=== PATIENT | male | born 1960 | race Caucasian/White ===

== ENCOUNTER 2018-07-21 07:55 | Day surgery (SDC) | payer OTHER ==
[~2018-07-21] VITALS: Ht 182.9 cm; Wt 98.0 kg
[~2018-07-21 07:55] MED LIST: ALLERCLEAR10 MG PO; FISH OIL 1,0001 EAC6 PO; ONCE DAILY1 EACH PO; PANTOPRAZOLE SO40 MG PO
--- NOTE | 2018-07-21 11:32 | NUR ---
07/21/18 1132 Stacey Yi 1124- PT ARRIVES TO PACU. EASILY AROUSABLE TO VOICE. REPORTS NO NAUSEA PAIN, OR DIZZINESS. CMS INTACT. 1131- OXYGEN TURNED OFF. OXYGEN SAT HIGH 90'S TO 100% ON RA.
--- NOTE | 2018-07-21 12:08 | NUR ---
PATIENT BACK IN DAY SURGERY ROOM FROM PACU. STATES LEFT KNEE IS "SORE". DENIES NEED FOR PAIN MEDICATION AT THIS TIME. LEFT KNEE DRESSING CDI. CMS TO LEFT TOES WNL. ICE PACK TO LEFT KNEE. LEFT LEG ELEVATED ON PILLOW. SCDs ON. TOLERATING ICE WATER. DENIES NAUSEA. LUNCH ORDERED FOR PATIENT. AT BEDSIDE. CALL LIGHT WITHIN REACH.
[2018-07-21] MEDS ORDERED: ULTRAM50 MG PO (12:16)
--- NOTE | 2018-07-21 13:35 | NUR ---
1300: PATIENT TOLERATED LUNCH. MEDICATED FOR PAIN. ASSISTED PATIENT OOB AND TO BATHROOM. GAIT STEADY TO BATHROOM. VOID WITHOUT DIFFICULTY. GAIT STEADY BACK TO ROOM. PATIENT GETTING DRESSED. 1315: DISCHARGE INSTRUCTIONS GIVEN TO PATIENT AND . IV DC'D WNL. TIP INTACT. DRESSING APPLIED. 1325: PATIENT DISCHARGED TO HOME WITH VIA WHEELCHAIR.
--- NOTE | 2018-07-26 07:13 | OR ---
[facility] [address] [place], [place] [address] Signed DATE OF OPERATION: SURGEON: Ar Huang MD PREOPERATIVE DIAGNOSIS: Ganglion cyst in the notch of the left knee. POSTOPERATIVE DIAGNOSIS: Ganglion cyst in the notch of the left knee. PROCEDURE PERFORMED: Removal of ganglion cyst in the notch of left knee with debridement of partial thickness ACL tear. ANESTHESIA: General. SPECIMENS: There were no specimens. COMPLICATIONS: None. TOURNIQUET TIME: About 27 minutes. WHAT WAS DONE: The patient was taken to the operating room. After anesthesia was induced and the airway secured, the patient was positioned, prepped and draped in a routine sterile fashion. The leg was exsanguinated with an Esmarch bandage. Pneumatic tourniquet was inflated to 300 mmHg pressure. An outflow portal was created superolaterally and an anterolateral arthroscopic portal was created. The arthroscope was introduced and the knee was filled with saline. The suprapatellar pouch was unremarkable. There were minimal grade 1 changes over the patellofemoral joint. The medial recess was unremarkable. The medial compartment showed some areas of grade 2 chondral filter changer the weightbearing portion of the medial femoral condyle, particularly on the lateral half of the medial femoral condyle, but the menisci seemed intact. There was moderate fraying of the ACL and the intercondylar notch. An anterolateral portal was created using transillumination and localization with a spinal needle. We then introduced the motorized shaver and debrided the loose ACL shards. There was still adequate ACL remaining and he had a negative Ivana's performed with the scope looking right at the Electronically Signed By: AR HUANG MD 07/26/18 0713 PATIENT NAME: PORTILLO NICHOLSON OPERATIVE REPORT DATE OF : 58 REPORT #: [id number] PHYSICIAN: AR HUANG MD PCP: PETRONA ZABALA REPORT IS CONFIDENTIAL AND NOT TO BE RELEASED WITHOUT AUTHORIZATION [facility] [address] [place], [place] [address] Signed ACL. The lateral compartment and lateral recess were unremarkable. We then created an auxiliary anterolateral portal and through it, we introduced the VAPR device. We used the VAPR to gently remove the soft tissue over the apex of the notch moving posteriorly until we encountered the ganglion cyst. We passed the nerve hook and we were able to rupture the ganglion cyst over the outpouring of significant amount of classic ganglionic fluid. We then used the VAPR device to remove the ganglion cyst remnants. The knee was copiously irrigated and drained, the portals were closed, and a sterile dressing applied. The patient was awakened, taken to the recovery room, where he arrived in stable condition. Counts were correct and antibiotic protocols were followed. MD SHAWNA Kamara/ANGELIKAL /[id number] Copies: ~ Electronically Signed By: AR HUANG MD 07/26/18 0713 PATIENT NAME: PORTILLO NICHOLSON OPERATIVE REPORT DATE OF : 58 REPORT #: [id number] PHYSICIAN: AR HUANG MD PCP: PETRONA ZABALA REPORT IS CONFIDENTIAL AND NOT TO BE RELEASED WITHOUT AUTHORIZATION
== END 2018-07-21 13:25 | disposition home or self-care (01) ==
LOC: DS 07:55 → OPS 07:55 → DS 09:45 → OPS 13:25
PROVIDERS: Orthopaedic Surgery
PROC: 0SBD4ZZ Excision of Left Knee Joint, Percutaneous Endoscopic Approach (ICD-10-PCS; 2018-07-21)
PROC: 0SCD4ZZ Extirpation of Matter from Left Knee Joint, Percutaneous Endoscopic Approach (ICD-10-PCS; principal; 2018-07-21 09:45)
DX: M67.462 Ganglion, left knee (principal); K21.9 Gastro-esophageal reflux disease without esophagitis; M23.612 Other spontaneous disruption of anterior cruciate ligament of left knee; Z79.899 Other long term (current) drug therapy; Z87.891 Personal history of nicotine dependence
CPT/HCPCS: 01400; J0690; J1885; J2250; J2405; J2704; J2765; J3010; J3301; J7120

== ENCOUNTER 2019-07-27 07:00 | Day surgery (SDC) | payer OTHER ==
[~2019-07-27] VITALS: Ht 182.9 cm; Wt 95.2 kg
[~2019-07-27 07:00] MED LIST changes: +GABAPENTIN300 MG PO; +ULTRAM50 MG PO
[2019-07-27] MEDS ORDERED: VITAMIN D31000 UNIT PO (07:15)
--- NOTE | 2019-07-27 10:02 | NUR ---
07/27/19 1002 Brandy Larkin 0947 PATIENT ARRIVES TO PACU SLEEPING, BUT RESPONDS TO VERBAL STIMULI. RESP EVEN AND UNLABORED, MASK AT 6 LITERS. 0950 PATIENT SLEEPING. 0955 PATIENT AWAKE OFF/ON. RESP EVEN AND UNLABORED. MASK OFF. ROOM AIR SATS >95%. PATIENT DENIES PAIN.
--- NOTE | 2019-07-31 14:23 | PATH ---
[facility] [address] [place], [place] [address] Signed SPECIMEN(S): A RIGHT INDEX FINGER SPECIMEN SOURCE: A. RIGHT INDEX FINGER CLINICAL HISTORY: Painful mass right index finger. FINAL PATHOLOGIC DIAGNOSIS: Soft tissue mass, right index finger, excision: - Benign hemangioma. - Negative for malignancy. NAL:cml:C2NR MICROSCOPIC EXAMINATION: Histologic sections of all submitted blocks are examined by light microscopy. These findings, together with the gross examination, support the pathologic diagnosis. GROSS DESCRIPTION: The specimen, labeled "BP, right index finger," is received in formalin and consists of a 1.0 x 0.9 x 0.3 cm red-brown firm nodule. The specimen is serially sectioned and entirely submitted in (A1). AM (under the direct supervision of a pathologist) The Gross Description was prepared using a voice recognition system. The report was reviewed for accuracy; however, sound-alike word errors, addition and/or deletions may occur. If there is any question about this report, please contact Client Services. PERFORMING LABORATORY: The technical component was performed by [facility], [address] [place] [id number] (Lead Auditor: Sarah Oswald MD; CLIA# [id number]). Professional interpretation was performed by [facility], [facility], [address] [address] (CLIA# [id number]). Diagnostician: Tigist Betancur MD Pathologist Electronically Signed 07/28/2019 PATIENT NAME: PORTILLO NICHOLSON PATHOLOGY DATE OF : 58 REPORT #: [id number] PHYSICIAN: MC KINGSLEY PCP: PETRONA ZABALA REPORT IS CONFIDENTIAL AND NOT TO BE RELEASED WITHOUT AUTHORIZATION [address] [address] Signed Copies: ~ PATIENT NAME: PORTILLO NICHOLSON PATHOLOGY DATE OF : 58 REPORT #: [id number] PHYSICIAN: MC KINGSLEY PCP: PETRONA ZABALA REPORT IS CONFIDENTIAL AND NOT TO BE RELEASED WITHOUT AUTHORIZATION
--- NOTE | 2019-08-01 07:14 | OR ---
[facility] [facility] [address] [facility] [place], [place] [address] Signed DATE OF OPERATION: 07/27/2019 SURGEON: Ar Huang MD PREOPERATIVE DIAGNOSIS: Mass, dorsal aspect, right index finger over the middle phalanx. POSTOPERATIVE DIAGNOSIS: Mass, dorsal aspect, right index finger over the middle phalanx. PATHOLOGY: Pending. ANESTHESIA: Local with sedation. SPECIMENS AND COMPLICATIONS: There were no specimens or complications. A glove fingertip was wrapped around the base of the finger for hemostasis. WHAT WAS DONE: The patient was taken to the operating room. After the patient was sedated, the patient was prepped and draped in a routine sterile fashion. We then did a digital block with 0.25% Marcaine. We then exsanguinated the finger and wrapped a cutoff tip of a glove around the base of the finger and secured it with a Crile. We then made a transverse incision over the palpable mass. Skin was divided sharply. Subcutaneous tissue was bluntly spread with a tip of a curved tenotomy scissor. As we had gently spread the soft tissue, the mass literally popped out of the incision. We then picked it up and removed some loose areolar tissue and the entire mass came off as a single fragment. The wound was gently irrigated. Hemostasis was achieved with a bipolar cautery. Wound closure was accomplished with 4-0 nylon. A sterile dressing applied. The patient was awakened and taken to the recovery room where he arrived in stable condition. Counts were correct and antibiotic protocols were followed. Ar Huang MD Electronically Signed By: AR HUANG MD 08/01/19 0714 PATIENT NAME: PORTILLO NICHOLSON OPERATIVE REPORT DATE OF : 58 REPORT #: [id number] PHYSICIAN: AR HUANG MD PCP: PETRONA ZABALA REPORT IS CONFIDENTIAL AND NOT TO BE RELEASED WITHOUT AUTHORIZATION [address] [place] [address] Signed [facility] /[id number] Copies: ~ Electronically Signed By: AR HUANG MD 08/01/19 0714 PATIENT NAME: PORTILLO NICHOLSON OPERATIVE REPORT DATE OF : 58 REPORT #: [id number] PHYSICIAN: AR HUANG MD PCP: PETRONA ZABALA REPORT IS CONFIDENTIAL AND NOT TO BE RELEASED WITHOUT AUTHORIZATION
== END 2019-07-27 10:25 | disposition home or self-care (01) ==
LOC: DS 07:00 → OPS 07:00 → DS 09:15 → OPS 09:15
PROVIDERS: Orthopaedic Surgery
PROC: 0JBJ0ZZ Excision of Right Hand Subcutaneous Tissue and Fascia, Open Approach (ICD-10-PCS; principal; 2019-07-27 09:15)
DX: D18.09 Hemangioma of other sites (principal); R14.2 Eructation; Z91.040 Latex allergy status; Z79.899 Other long term (current) drug therapy; Z87.891 Personal history of nicotine dependence
CPT/HCPCS: J0690; J2704; J7120